=== PATIENT | female | born 1990 | race Caucasian/White ===

== ENCOUNTER 2018-05-04 08:45 | Day surgery (SDC) | payer BC ==
[~2018-05-04 08:45] MED LIST: ACETAMINOPHEN 1,000 MG/100 ML BTL IV ONE; CLINDAMYCIN PHOS/D5W 900MG 900 MG/50 ML BAG IVPB ONE
[2018-05-04] MEDS ORDERED: SEVOFLURANE 250 ML INH ONE (08:46)
[2018-05-04] MEDS ORDERED: KETOROLAC 30 MG/ML VIAL IVP ONE (08:46)
[2018-05-04] MEDS ORDERED: DIPHENHYDRAMINE HCL 50 MG/ML VIAL IVP ONE (08:46)
[2018-05-04] MEDS ORDERED: PROPOFOL 10 MG/ML VIAL IV ONE (08:46)
[2018-05-04] MEDS ORDERED: MORPHINE SULFATE 4MG/ML PREFILLED SYRINGE IVP ONE (08:46)
[2018-05-04] MEDS ORDERED: METHYLPREDNISOLONE 40MG/VIAL IM ONE (08:46)
[2018-05-04] MEDS ORDERED: BUPIVACAINE 0.5% W/EPI MPF 30 ML VIAL IVP ONE (08:46)
--- NOTE | 2018-05-05 15:07 | Operative Note ---
DATE OF SURGERY: 05/04/18 PREOPERATIVE DIAGNOSIS: INTERNAL DERANGEMENT OF THE LEFT KNEE. POSTOPERATIVE DIAGNOSIS: PROFOUND FAT PAD IMPINGEMENT. PROCEDURE: LEFT KNEE ARTHROSCOPY WITH INTRA-ARTICULAR DEBRIDEMENT. STAFF SURGEON: NAIDA VINES M.D. ANESTHESIA: GENERAL. PREPARATION: CHLORAPREP. INDIVIDUAL CONSIDERATIONS: NONE. PROCEDURE: The patient was taken to the Operating Room and placed supine on the operating table. She had a successful induction of a general anesthetic. Her left lower extremity was prepped and draped in the usual fashion. The patient had a superolateral inflow cannula placed. The skin was infiltrated with 0.5% Marcaine with Epinephrine prior. The knee was then inflated with normal saline. An inferior medial and an inferior lateral portal were made in a similar fashion. The arthroscope was introduced through the inferior lateral portal up in the pouch. The patellofemoral joint was normal except for the fact that she had rather a large impinging fat pad inferiorly. No loose bodies were seen in the pouch or either gutter medially. Supposedly, an MRI scan showed a torn medial meniscus but the medial side and medial meniscus were well-seen and probed and found to be absolutely normal. The articular cartilage medially was normal and the notch. The cruciates were normal. The lateral compartment structures were normal. The only pathology that would explain her locking was the fat pad impinging and this was all debrided out with a shaver. After irrigation, the portals were closed with fredo and 20 mL of 0.25% Marcaine with Epinephrine were injected into the knee and a sterile Bulkee compressive dressing was applied. The patient tolerated the procedure well. Needle and sponge counts were correct. Estimated blood loss was minimal and he was taken back to Recovery in good condition. There were no complications. JOB NUMBER: [id number] [facility]
== END 2018-05-04 12:40 | disposition home or self-care (01) ==
LOC: SUR 08:45
PROVIDERS: ATTEND Orthopaedic Surgery
DX: M79.4 Hypertrophy of (infrapatellar) fat pad (principal)
CPT/HCPCS: 29877; 01400; 64447; 81025; J1885; J3490; J2274; J1030; J1200

== ENCOUNTER 2018-10-18 08:05 | Day surgery (SDC) | payer BC ==
[~2018-10-18 08:05] MED LIST changes: -CLINDAMYCIN PHOS/D5W 900MG 900 MG/50 ML BAG IVPB ONE; +LEVOFLOXACIN 500MG IVPB 500 MG/100 ML BAG IVPB ONE
[2018-10-18] MEDS ORDERED: MIDAZOLAM HCL 2MG/2ML VIAL IV ONE (08:06)
[2018-10-18] MEDS ORDERED: ONDANSETRON HCL IV 4 MG/2 ML VIAL IVP ONE (08:06)
[2018-10-18] MEDS ORDERED: METHYLPREDNISOLONE 40MG/VIAL IM ONE (08:06)
[2018-10-18] MEDS ORDERED: SEVOFLURANE 250 ML INH ONE (08:06)
[2018-10-18] MEDS ORDERED: BUPIVACAINE 0.5% W/EPI MPF 30 ML VIAL IVP ONE (08:06)
[2018-10-18] MEDS ORDERED: KETOROLAC 30 MG/ML VIAL IVP ONE (08:06)
[2018-10-18] MEDS ORDERED: PROPOFOL 10 MG/ML VIAL IV ONE (08:06)
[2018-10-18] MEDS ORDERED: LIDOCAINE 2% MDV (20MG/ML) 20ML VIAL IV ONE (08:06)
[2018-10-18] MEDS ORDERED: MORPHINE SULFATE 4 MG/ML VIAL ONE (08:37)
--- NOTE | 2018-10-19 08:30 | Operative Note ---
DATE OF SURGERY: 10/18/2018 PREOPERATIVE DIAGNOSIS: Internal derangement of the left knee. POSTOPERATIVE DIAGNOSIS: Small grade 3 chondromalacia, inferior pole of patella. OPERATION: Left knee arthroscopy with chondroplasty of patella. Staff Surgeon: Ramez Velez MD Anesthesia: General. Preparation: Chloraprep. Individual Considerations: None. PROCEDURE: The patient was taken to the operating room and placed supine on the operating room table. The patient had a successful induction with general anesthetic. The left lower extremity was prepped and draped in the usual fashion. The patient had a superolateral inflow cannula placed. Skin was infiltrated with 0.5% Marcaine with epinephrine prior. The knee was inflated with normal saline. An inferomedial and an inferolateral portal were made in a similar fashion. The arthroscope was introduced through the inferolateral portal up into the pouch. Patellofemoral joint had small grade 3 changes at the inferior pole. This was debrided with a shaver. No significant synovitis was seen in the pouch or either gutter. Medially, the medial compartment was well seen and probed and found to be completely normal including the posterior horn of the medial meniscus which showed an abnormality on the MRI scan, but this was absolutely normal. The notch, the cruciates were normal, and lateral compartment structures were well seen and probed and found to be absolutely normal. The knee was irrigated out with saline. Portals were closed with fredo, and 15 mL of 0.5% Marcaine with epinephrine along with 4 mg of morphine and 40 mg of Depo-Medrol were injected into the knee. A sterile bulky compressive dressing was applied. The patient tolerated procedure well. Needle and sponge counts were correct. Estimated blood loss was minimal. She was taken back to recovery in good condition. There were no complications. [facility]
== END 2018-10-18 11:50 | disposition home or self-care (01) ==
LOC: SUR 08:05 → MERGE 10:00 → SUR 11:50
PROVIDERS: ATTEND Orthopaedic Surgery
DX: M22.42 Chondromalacia patellae, left knee (principal); I95.9 Hypotension, unspecified
CPT/HCPCS: 81025; J1030; J1885; J1956; J2270; J2405